=== PATIENT | male | born 1985 | race African-American/Black ===

== ENCOUNTER 2021-01-22 06:13 | Inpatient (IN) | payer MEDICAID, OTHER ==
[~2021-01-22] VITALS: Ht 185.4 cm; Wt 90.1 kg
[~2021-01-22 06:13] MED LIST: none reported
[2021-01-22] MEDS ORDERED: IPRATROPIUM BROMIDE (0.02%) 0.5MG/2.5ML NEB HHN STA (07:03)
[2021-01-22] MEDS ORDERED: ALBUTEROL (0.083%) 2.5MG/3ML NEB HHN STA (07:03)
[2021-01-22 08:35] LABS: BASOPHILS % 1.1 % (0.0-2.0); EOSINOPHILS % 0.8 % (0.0-5.0); HEMATOCRIT. 28.5 % (42.0-52.0); HEMOGLOBIN. 8.5 g/dL (14.0-18.0); LYMPHOCYTES % 17.6 % (20.0-50.0); MEAN CORPUSCULAR VOLUME 80.8 fL (80.0-94.0); MONOCYTES % 10.6 % (2.0-8.0); NEUTROPHILS % 69.9 % (40.0-76.0); PLATELET 272 x1000/uL (130-400); RED BLOOD CELL COUNT 3.53 mill/uL (4.7-6.1); RED CELL DISTRIBUTION WIDTH 23.9 % (11.6-14.6)
[2021-01-22 08:42] LABS: CHLORIDE 105 mEq/L (98-107)
[2021-01-22] MEDS ORDERED: METOPROLOL TARTRATE 5MG/5ML VIAL IV ONE (09:30)
[2021-01-22] MEDS ORDERED: FUROSEMIDE 100MG/10ML VIAL IVP ONE (09:30)
[2021-01-22] MEDS ORDERED: CEFTRIAXONE 1 G PREMIX 50 ML IV ONE (09:30)
[2021-01-22 09:36] LABS: PLATELET ESTIMATE NORMAL
[2021-01-22] MEDS ORDERED: AZITHROMYCIN 500 MG in DEXT 5% WATER 250 ML IV SCH (10:00)
[2021-01-22] MEDS ORDERED: ACETAMINOPHEN 325MG TABLET PO PRN (10:15)
[2021-01-22 10:50] LABS: BG BASE EXCESS -2.2 mmol/L (-2.0-2.0); BG CARBOXYHEMOGLOBIN 1.2 % (0.5-1.5); BG DEOXYHEMOGLOBIN 5.9 % (0.0-5.0); BG FRACTION INSPIRED OXYGEN 28; BG HCO3 ACT 20.6 mmol/L (22.0-26.0); BG METHEMOGLOBIN 0.3 % (0.0-1.5); BG OXYHEMOGLOBIN 92.6 % (94.0-97.0); BG PCO2 28.6 mmHg (35.0-45.0); BG PH 7.476 (7.350-7.450); BG PO2 66.7 mmHg (75.0-100.0); BG SAMPLE SITE RIGHT BRACHIAL; BG TOTAL HEMOGLOBIN 9.8 g/dL (12.0-18.0); BG VENT MODE NASAL CANNULA
[2021-01-22] MEDS ORDERED: LACTULOSE 20G/30ML UDC PO ONE (12:15)
[2021-01-22] MEDS ORDERED: MORPHINE SULFATE 4 MG/ML CPJ (NOT FOR IM USE) IV ONE (13:30)
[2021-01-22] MEDS ORDERED: ONDANSETRON HCL 4MG/2ML INJ IV ONE (14:00)
[2021-01-22 16:11] LABS: CHLORIDE 104 mEq/L (98-107)
[2021-01-23] VITALS (9 sets, daily range): BP systolic 103–128; BP diastolic 61–98
[2021-01-23] MEDS: OXYCODONE HCL 5MG TABLET PO PRN ×3 (01:19→18:21)
[2021-01-23] MEDS ORDERED: ISOS5TAB4 MT (06:23)
[2021-01-23] MEDS ORDERED: LOSA25TA26 MT (06:23)
[2021-01-23] MEDS ORDERED: SPIR25TA6 MT (06:23)
[2021-01-23] MEDS ORDERED: *PATIENT'S OWN MEDICATION STORAGE XX SCH (07:00)
[2021-01-23] MEDS: LOSARTAN POTASSIUM 25 MG TABLET PO SCH (11:22)
[2021-01-23] MEDS: FUROSEMIDE 40MG/4ML VIAL IVP SCH ×2 (11:22→18:21)
[2021-01-23 11:38] LABS: BASOPHILS % 0.7 % (0.0-2.0); EOSINOPHILS % 1.4 % (0.0-5.0); HEMATOCRIT. 27.3 % (42.0-52.0); HEMOGLOBIN. 8.5 g/dL (14.0-18.0); LYMPHOCYTES % 19.5 % (20.0-50.0); MEAN CORPUSCULAR HEMOGLOBIN 24.9 pg (28.0-32.0); MEAN CORPUSCULAR VOLUME 80.5 fL (80.0-94.0); MEAN PLATELET VOLUME 7.9 fl (7.4-10.4); NEUTROPHILS % 66.4 % (40.0-76.0); PLATELET 265 x1000/uL (130-400); RED CELL DISTRIBUTION WIDTH 23.2 % (11.6-14.6)
[2021-01-23 12:05] LABS: CHLORIDE 99 mEq/L (98-107)
[2021-01-23] MEDS ORDERED: NALOXONE HCL 0.4MG/ML VIAL IV PRN (12:45)
[2021-01-23 15:12] LABS: *BARBITURATES SCREEN URINE NEGATIVE (NEGATIVE)
[2021-01-23 15:13] LABS: *BENZODIAZEPINES SCREEN URINE NEGATIVE (NEGATIVE); *COCAINE SCREEN URINE NEGATIVE (NEGATIVE); CANNABINOID URINE SCREEN PRESUMTIVE POSITIVE (NEGATIVE); METHADONE URINE SCREEN NEGATIVE (NEGATIVE); OPIATES URINE SCREEN PRESUMTIVE POSITIVE (NEGATIVE); PHENCYCLIDINE URINE SCREEN PRESUMTIVE POSITIVE (NEGATIVE)
[2021-01-23 15:14] LABS: *AMPHETAMINES SCREEN URINE PRESUMTIVE POSITIVE (NEGATIVE)
[2021-01-23] MEDS: FAMOTIDINE 20MG TABLET PO SCH (21:42)
[2021-01-23] MEDS: CARVEDILOL 3.125 MG TABLET PO SCH (21:42)
[2021-01-24] VITALS (10 sets, daily range): BP systolic 103–124; BP diastolic 45–87
[2021-01-24] MEDS: FUROSEMIDE 40MG/4ML VIAL IVP SCH ×2 (06:43→17:39)
[2021-01-24] MEDS: CARVEDILOL 3.125 MG TABLET PO SCH (08:56)
[2021-01-24] MEDS: LOSARTAN POTASSIUM 25 MG TABLET PO SCH (08:56)
[2021-01-24] MEDS: OXYCODONE HCL 5MG TABLET PO PRN ×3 (09:04→22:12)
[2021-01-24 11:13] LABS: EOSINOPHILS % 1.8 % (0.0-5.0); HEMATOCRIT. 26.8 % (42.0-52.0); HEMOGLOBIN. 8.4 g/dL (14.0-18.0); LYMPHOCYTES % 14.5 % (20.0-50.0); MEAN CORPUSCULAR HEMOGLOBIN 24.8 pg (28.0-32.0); MEAN CORPUSCULAR VOLUME 79.5 fL (80.0-94.0); MEAN PLATELET VOLUME 7.8 fl (7.4-10.4); MONOCYTES % 8.9 % (2.0-8.0); NEUTROPHILS % 73.8 % (40.0-76.0); PLATELET 263 x1000/uL (130-400); RED BLOOD CELL COUNT 3.37 mill/uL (4.7-6.1); RED CELL DISTRIBUTION WIDTH 23.4 % (11.6-14.6)
[2021-01-24 11:21] LABS: CHLORIDE 99 mEq/L (98-107)
[2021-01-24 11:23] LABS: INR 1.6; PROTHROMBIN TIME 16.5 sec (9.6-11.0)
[2021-01-24 11:27] LABS: TOTAL IRON BINDING CAPACITY 449 ug/dL (250-450)
[2021-01-24 11:40] LABS: FOLIC ACID (FOLATE) SERUM 19.8 ng/mL (>5.38)
[2021-01-24] MEDS ORDERED: HYDROXYCHLOROQUINE SULFATE 200MG TABLET PO SCH (12:00)
[2021-01-24 13:07] LABS: HEPATITIS B SURFACE ANTIGEN NEGATIVE
[2021-01-24] MEDS ORDERED: SILDENAFIL CITRATE 20MG TABLET PO SCH (14:00)
[2021-01-24] MEDS: FAMOTIDINE 20MG TABLET PO SCH (22:02)
[2021-01-25 00:08] VITALS: BP 122/89
[2021-01-25 02:28] VITALS: BP 101/69
[2021-01-25] MEDS: OXYCODONE HCL 5MG TABLET PO PRN ×2 (02:34→07:40)
[2021-01-25 03:41] VITALS: BP 100/69
[2021-01-25 05:46] VITALS: BP 98/65
[2021-01-25] MEDS: FUROSEMIDE 40MG/4ML VIAL IVP SCH (07:40)
[2021-01-25 07:50] VITALS: BP 112/73
[2021-01-25] MEDS: LOSARTAN POTASSIUM 25 MG TABLET PO SCH (09:00)
== END 2021-01-25 09:50 | disposition left against medical advice (07) | DRG 194 ==
LOC: ER 06:13 → MICUSO 09:31 → 3WST 01-23 01:37
PROVIDERS: ADMIT Family Medicine Adult Medicine; ATTEND Family Medicine Adult Medicine
DX: I11.0 Hypertensive heart disease with heart failure (principal); I27.29 Other secondary pulmonary hypertension; I31.3 Pericardial effusion (noninflammatory); K80.00 Calculus of gallbladder with acute cholecystitis without obstruction; I27.81 Cor pulmonale (chronic); R16.0 Hepatomegaly, not elsewhere classified; I42.7 Cardiomyopathy due to drug and external agent; R18.8 Other ascites; D64.9 Anemia, unspecified; F10.10 Alcohol abuse, uncomplicated; I50.9 Heart failure, unspecified; Z20.822 Contact with and (suspected) exposure to COVID-19; Y90.9 Presence of alcohol in blood, level not specified; R00.0 Tachycardia, unspecified; F15.10 Other stimulant abuse, uncomplicated; I36.1 Nonrheumatic tricuspid (valve) insufficiency; Z87.891 Personal history of nicotine dependence; Z99.81 Dependence on supplemental oxygen; Z91.041 Radiographic dye allergy status
CPT/HCPCS: 36415; 36600; 71045; 74176; 76700; 78580; 80048; 80053; 80061; 80076; 80305; 82105; 82375; 82607; 82728; 82746; 82805; 82962; 83540; 83550; 83735; 83880; 84484; 85025; 85379; 86301; 86705; 86709; 86803; 87340; 87426; 93005; 93306; 94640; 99285; J0456; J0696; J1940; J2270; J2405; J3490; J7060